=== PATIENT | male | born 1955 | race African-American/Black ===

== ENCOUNTER 2021-12-21 18:11 | Emergency (ER) | payer BC ==
[2021-12-21 18:29] VITALS: BMI 34.0
[2021-12-21 21:12] VITALS: BP 136/89; PULSE 98; TEMP 98.7
== END 2021-12-21 22:45 | disposition short-term general hospital (02) ==
LOC: JER 18:11
DX: K13.70 Unspecified lesions of oral mucosa (principal)
CPT/HCPCS: 99281-25